=== PATIENT | female | born 2005 | race Caucasian/White ===

== ENCOUNTER 2024-12-01 14:22 | Emergency (ER) | payer OTHER ==
[2024-12-01 14:52] VITALS: BMI 20.5
[2024-12-01 16:17] LABS: HEMATOCRIT 23.1 % (34.1-44.9); MCHC 30.3 g/dl (32.2-35.5); MEAN CELL VOLUME 71.7 fl (79.4-94.8); MEAN PLT VOLUME 11.5 fl (9.4-12.3); PLATELET COUNT 185 x10^3/uL (182-369); RDW 15.4 % (12.1-16.5)
[2024-12-01 16:24] LABS: INR 1.04 (0.83-1.09); PROTHROMBIN TIME (PATIENT) 11.4 SEC (9.7-13.0)
[2024-12-01 17:12] LABS: POTASSIUM 3.6 mmol/L (3.5-5.1)
[2024-12-01 17:14] LABS: ALBUMIN 2.5 g/dl (3.4-5.0)
[2024-12-01 17:15] LABS: BLOOD UREA NITROGEN 5.1 mg/dL (7-18)
[2024-12-01 17:18] LABS: CREATININE 0.4 mg/dL (0.55-1.3)
[2024-12-01 17:19] LABS: BILIRUBIN,TOTAL 0.2 mg/dL (0.2-1); TOT PROT 6.1 g/dl (6.4-8.2)
[2024-12-01 17:47] LABS: EPI CELLS >36 /uL (0-25.1); HYALINE CASTS 1 /uL (0-3.1); URINE APPEARANCE CLOUDY; URINE BACTERIA >9,000 /uL (0-1359); URINE BILIRUBIN NEGATIVE (NEGATIVE); URINE COLOR YELLOW; URINE GLUCOSE (UA) NEGATIVE (NEGATIVE); URINE KETONE NEGATIVE (NEGATIVE); URINE LEUK ESTERASE 3+ (NEGATIVE); URINE NITRITE NEGATIVE (NEGATIVE); URINE PROTEIN TRACE (NEGATIVE); URINE RBC 5 /uL (0-23.9); URINE UROBILINOGEN 0.2 mg/dL (0.2-1.0); URINE WBC 174 /uL (0-25.8)
[2024-12-01 19:02] VITALS: BP 106/59; PULSE 79; RESP 20; TEMP 98.4
[2024-12-01] MEDS: IRON SUCROSE INJECTION 200 MG in SODIUM CHLORIDE 100 ML IVPB ONE (21:20)
== END 2024-12-01 22:35 | disposition home or self-care (01) ==
LOC: JER 14:22
PROC: 3E033GC Introduction of Other Therapeutic Substance into Peripheral Vein, Percutaneous Approach (ICD-10-PCS; principal; 2024-12-01)
DX: O99.012 Anemia complicating pregnancy, second trimester (principal); D50.9 Iron deficiency anemia, unspecified; O26.892 Other specified pregnancy related conditions, second trimester; R06.02 Shortness of breath; Z3A.24 24 weeks gestation of pregnancy
CPT/HCPCS: 36415; 80053; 81003; 82728; 83540; 83550; 84702; 85027; 85610; 86850; 86900; 86901; 87086; 93005; 93010; 99284-25; J1756

== ENCOUNTER 2025-03-15 14:35 | Inpatient (IN) | payer OTHER ==
[2025-03-15 15:46] LABS: ABSOLUTE IMMATURE GRANULOCYTES 0.11 x10^3/uL (0.0-0.031); BASOPHILS # 0.02 x10^3/uL (0.01-0.08); EOSINOPHIL % 1.6 % (0.7-5.8); EOSINOPHILS # 0.11 x10^3/uL (0.04-0.36); MCHC 31.8 g/dl (32.2-35.5); MEAN CELL VOLUME 81.7 fl (79.4-94.8); MONOCYTE # 0.73 x10^3/uL (0.24-0.86); MONOCYTE % 10.4 % (4.7-12.5); RDW 21.4 % (12.1-16.5)
[2025-03-15 15:55] LABS: INR 1.03 (0.83-1.09); PROTHROMBIN TIME (PATIENT) 11.3 SEC (9.7-13.0)
[2025-03-15 15:57] LABS: ACTIVATED PTT 25.5 SECONDS (25.2-36.5)
[2025-03-15] MEDS: ELECTROLYTE-148 SOLN 1,000 ML IV SCH (16:00)
[2025-03-15 16:13] LABS: CO2 24 mmol/L (21-32); GLUCOSE,RANDOM 74 mg/dL (74-106)
[2025-03-15 16:16] LABS: CREATININE 0.4 mg/dL (0.55-1.3)
[2025-03-15] MEDS ORDERED: OXYTOCIN 30 UNITS in 0.9% NS 30 UNIT/500 ML INFUS.BAG IVPB ONE (17:19)
[2025-03-15] MEDS: OXYTOCIN 30 UNITS in 0.9% NS 30 UNIT/500 ML INFUS.BAG IVPB SCH (17:30)
[2025-03-16] MEDS ORDERED: FENTANYL/BUPIVACAINE/NS/PF - PCEA - 50 ML DISP.SYRIN EP ONE ×2 (09:07→13:23)
[2025-03-16 09:08] VITALS: BMI 23.1
[2025-03-16] MEDS ORDERED: BUPIVACAINE HCL/PF 0.25% (2.5MG/ML) 10 ML VIAL ONE (09:13)
[2025-03-16] MEDS: FENTANYL/BUPIVACAINE/NS/PF - PCEA - 50 ML DISP.SYRIN EP SCH (09:30)
[2025-03-16] MEDS ORDERED: NALOXONE HCL 0.4 MG/ML VIAL IVPUSH PRN (10:45)
[2025-03-16] MEDS ORDERED: LIDOCAINE HCL 1% PRESERVATIVE FREE - 30ML VIAL ONE (13:38)
[2025-03-16] MEDS ORDERED: OXYTOCIN 20 UNITS in 0.9% NS 20 UNIT/1,000 ML INFUS.BAG IV ONE (13:38)
[2025-03-16] MEDS: OXYTOCIN 20 UNITS in 0.9% NS 20 UNIT/1,000 ML INFUS.BAG IV SCH (15:20)
[2025-03-16] MEDS ORDERED: WITCH HAZEL 50% (TUCKS) 40 PAD/JAR PAD TP PRN (15:53)
[2025-03-16] MEDS ORDERED: BISACODYL 10 MG SUPP.RECT RC PRN (15:53)
[2025-03-16] MEDS ORDERED: METHYLERGONOVINE MALEATE 0.2 MG/1 ML AMP IM PRN (15:53)
[2025-03-16] MEDS ORDERED: BENZOCAINE 28 GM HEMORRHOIDAL OINTMENT TP PRN (15:53)
[2025-03-16] MEDS: BUTORPHANOL TARTRATE 2 MG/ML VIAL IVPB ONE (16:57)
[2025-03-16] MEDS: PROMETHAZINE HCL 25 MG/1 ML VIAL IVPB ONE (16:57)
[2025-03-16] MEDS: ACETAMINOPHEN 325 MG TABLET (FP) PO PRN (19:24)
[2025-03-16] MEDS: IBUPROFEN 600 MG TABLET (FP) PO PRN (21:26)
[2025-03-17 07:53] LABS: ABSOLUTE IMMATURE GRANULOCYTES 0.14 x10^3/uL (0.0-0.031); RDW 21.1 % (12.1-16.5)
[2025-03-17 07:54] LABS: BASOPHILS # 0.02 x10^3/uL (0.01-0.08); EOSINOPHIL % 0.7 % (0.7-5.8); EOSINOPHILS # 0.08 x10^3/uL (0.04-0.36); IMMATURE PLATELET FRACTION # 5.60 x10^3/uL; MCHC 32.1 g/dl (32.2-35.5); MEAN CELL VOLUME 82.3 fl (79.4-94.8); MEAN PLT VOLUME 11.2 fl (9.4-12.3); MONOCYTE # 1.22 x10^3/uL (0.24-0.86); MONOCYTE % 10.7 % (4.7-12.5)
[2025-03-17] MEDS: BENZOCAINE 20% 57 GM BOTTLE TP PRN (09:27)
[2025-03-17] MEDS: FERROUS SO4 325 MG TABLET (FP) PO SCH (11:02)
[2025-03-17] MEDS: SENNOSIDES/DOCUSATE COMBO (SENNA PLUS) TABLET (UD) PO PRN (22:01)
[2025-03-17 22:03] VITALS: RESP 18
[2025-03-18 10:18] VITALS: BP 123/84; PULSE 82; TEMP 98.7
== END 2025-03-18 11:15 | disposition home or self-care (01) | DRG 560 ==
LOC: JLDR 14:35 → J3W 03-16 17:50
PROVIDERS: ADMIT Specialist; ATTEND Specialist
PROC: 10E0XZZ Delivery of Products of Conception, External Approach (ICD-10-PCS; principal; 2025-03-16)
PROC: 0W8NXZZ Division of Female Perineum, External Approach (ICD-10-PCS; 2025-03-16)
DX: O80 Encounter for full-term uncomplicated delivery (principal); Z3A.39 39 weeks gestation of pregnancy; Z37.0 Single live birth
CPT/HCPCS: 36415; 59409; 80048; 85025; 85610; 85730; 86780; 86850; 86900; 86901